=== PATIENT | male | born 1960 | race Caucasian/White ===

== ENCOUNTER → 2020-05-03 13:11 | Outpatient (CLI) | payer OTHER, SELFPAY ==
--- NOTE | ~2020-05-03 | XR_ITS ---
EXAMINATION: XR abdomen obstructive series DATE: 05/03/2020 13:38 INDICATION: Unspecified abdominal pain TECHNIQUE: Upright and supine views of the abdomen were obtained. COMPARISON: CT, 10/17/2017 FINDINGS: There is a large volume of colonic stool. There is no free intraperitoneal gas or evidence of bowel obstruction. The bowel gas pattern is normal. Cholecystectomy clips are noted in the right u pper quadrant. The lung bases are clear. There is mild osteoarthritis of the hips. IMPRESSION: 1. Constipation Reviewed, dictated and finalized at location A. IMPRESSION: 1. Constipation
== END ==
PROVIDERS: PCP Family Medicine; Visit Provider Physician Assistant
DX: R10.9 Unspecified abdominal pain (principal); K59.00 Constipation, unspecified
CPT/HCPCS: 74019

== ENCOUNTER 2020-08-29 12:35 | Outpatient (NON) | payer OTHER, SELFPAY ==
[2020-08-30 01:01] LABS: SARS-CoV-2 RNA PCR Negative
== END 2020-08-29 12:36 ==
LOC: ANHCOVIDDT 12:37
PROVIDERS: PCP Family Medicine; Visit Provider Physician Assistant
DX: R50.9 Fever, unspecified (principal); Z20.828 Contact with and (suspected) exposure to other viral communicable diseases
CPT/HCPCS: 87635; C9803; U0003

== ENCOUNTER 2021-02-08 18:30 | Emergency (ER) | payer BC, SELFPAY ==
[2021-02-08 18:38] VITALS: BP 126/71; PULSE 87; RESP 16; TEMP 36.3; O2SAT 98
--- NOTE | 2021-02-08 18:43 | ED.EAR ---
HPI - Ear Problem General Chief complaint: Ear Stated complaint: ear pain Time Seen by Provider: 02/08/21 18:43 Source: patient and RN notes reviewed Mode of arrival: ambulatory Limitations: no limitations History of Present Illness HPI Narrative: 60-year-old male presents with concern for continued right ear pain. Reports ongoing ear pain despite 2 rounds of antibiotics. Reports 3 weeks ago he was seen by his primary care provider who put him on cephalexin and prednisone. Reports symptoms improved but did not resolve. Reports his provider then put him on Bactrim. He denies any improvement with Bactrim. Reports he has an appointment with a ENT next , however the pain was intolerable for 1 week. He denies drainage from the ear, ear canal swelling, tinnitus, hearing changes. MD Complaint: ear pain Related Data Home Medications Medication Instructions Recorded Confirmed Bifidobacterium infantis 4 mg 4 mg PO DAILY 06/17/20 01/25/21 capsule olmesartan 40 mg PO DAILY 02/08/21 02/08/21 omeprazole 40 mg PO DAILY 02/08/21 02/08/21 Allergies Allergy/AdvReac Type Severity Reaction Status Date / Time ciprofloxacin Allergy Unknown unknown Verified 02/08/21 19:11 codeine Allergy Unknown unknown Verified 02/08/21 19:12 erythromycin base Allergy Unknown unknown Verified 02/08/21 19:12 Penicillins Allergy Unknown unknown Verified 02/08/21 19:12 Quinolones Allergy Unknown A CHILD Verified 02/08/21 19:12 tetracycline Allergy Unknown unknown Verified 02/08/21 19:12 Review of Systems Review of Systems: Narrative: CONSTITUTIONAL: Denies malaise, chills, sweats, or fever. EYES: Denies visual changes, redness, or discharge. ENT: Denies rhinorrhea, congestion, sinus pain, and sore throat. Reports right ear pain. Denies hearing changes, tinnitus, drainage CARDIOVASCULAR: Denies chest pain, palpitations, or edema. RESPIRATORY: Denies cough or dyspnea. GASTROINTESTINAL: Denies abdominal pain, nausea, vomiting, diarrhea SKIN: Denies rash or itching. MUSCULOSKELETAL: Denies myalgia. NEUROLOGIC: Denies headache. All systems reviewed & are unremarkable except as noted in HPI and below PMFSH Past Medical History Medical History (Updated 02/08/21 @ 19:02 by Saritha Mensah NP) Diverticula of intestine (~2017) Hypertension IBS (irritable bowel syndrome) Normal colonoscopy (~2016) Follow up in 5 years Surgical History Surgical History Hx of cholecystectomy (~2001) S/P nasal surgery (~1978) Family History Family History Father Hypertension, Onset Age: 66 Cerebrovascular accident, Onset Age: 66 Patient's father is , Onset Age: 66 Mother Hypertension Social History Social History Second hand tobacco smoke exposure: No Alcohol intake: never Substance use: never Substance use type: does not use Comments At time of signature, agree with nursing past medical, surgical, social and family history. There is no relevant family history pertinent to the presenting complaint Exam Narrative: Exam Narrative: GENERAL: Well-appearing, well-nourished, and in no acute distress. HEAD: Normocephalic EYES: PERRLA, conjunctivae clear ENT: Nares clear. Mucous membranes moist. Left TM pearly graves with dull light reflex, left TM slightly bulging and cloudy without erythema; auditory canals unremarkable, no tragal tenderness. NECK: Supple. No lymphadenopathy CHEST: No respiratory distress, speaks in full sentences. HEART: Regular rate and rhythm. No murmur heard. SKIN: Warm, dry, no rash. NEURO: Alert and oriented x3. PSYCH: Normal mood and affect Course Course Emergency Course: Patient is aware of diagnosis, understands and agrees to treatment plan. Anticipatory guidance given. Patient agrees to follow-up as directed and is aware
== END 2021-02-08 19:05 | disposition home or self-care (01) ==
PROVIDERS: Emergency Provider Nurse Practitioner; PCP Family Medicine
DX: H65.04 Acute serous otitis media, recurrent, right ear (principal); I10 Essential (primary) hypertension
CPT/HCPCS: 99213; G0463

== ENCOUNTER → 2021-02-20 14:07 | Outpatient (CLI) | payer BC, SELFPAY ==
--- NOTE | ~2021-02-20 | XR_ITS ---
XR cervical spine 4-5V 02/20/2021 14:21 Indication: Cervicalgia Procedure: 4 views of the cervical spine Comparison: No prior studies for comparison. Findings: There is accentuated cervical lordosis. Vertebral body heights are maintained. No preverteb ral soft tissue swelling. Lung apices are normal. Odontoid process within normal limits. There are mi ld uncinate degenerative change at multiple levels. Impression: 1: Mild cervical spondylosis. Reviewed, dictated and finalized at location A. Impression: 1: Mild cervical spondylosis.
== END ==
PROVIDERS: Visit Provider Physician Assistant
DX: M47.812 Spondylosis without myelopathy or radiculopathy, cervical region (principal)
CPT/HCPCS: 72050

== ENCOUNTER 2021-04-25 13:52 | Outpatient (CLI) | payer BC, SELFPAY ==
--- NOTE | ~2021-04-25 | CT_ITS ---
EXAMINATION: CT cervical spine wo [facility] EXAM DATE: 04/25/2021 14:41 INDICATION: Cervicalgia. TECHNIQUE: Spiral CT of the cervical spine was performed without contrast. Axial images were reviewe d. Coronal and sagittal reformatted images cervical spine were also reviewed. The dose-length produc t (DLP) for this examination was 407.00 mGy-cm. The exposure was tailored according to patient size (auto mA exposure control), and iterative reconstruction (ASIR) was used as additional dose reduction technique. Correlation is made to x-ray from January. FINDINGS: The disc and vertebral body heights are maintained. There are small endplate osteophytes. There are no acute fractures identified. The odontoid process is intact. The lateral masses of C1 li ne up with C2. Prevertebral soft tissue and pre-dens space are within normal limits. Level by level evaluation: C2-C3: Disc does not extend beyond the endplate margin. Uncovertebral joint arthropathy: None. Facet joint arthropathy: Mild left. Neural foraminal stenosis: No stenosis. Central canal stenosis: No stenosis. C3-C4: Disc does not extend beyond the endplate margin. Uncovertebral joint arthropathy: None. Facet joint arthropathy: Moderate left. Neural foraminal stenosis: No stenosis. Central canal stenosis: No stenosis. C4-C5: There is a mild diffuse disc bulge. Uncovertebral joint arthropathy: None. Facet joint arthropathy: Moderate left. Neural foraminal stenosis: No stenosis. Central canal stenosis: No stenosis. C5-C6: There is a mild diffuse disc bulge. Uncovertebral joint arthropathy: None. Facet joint arthropathy: Moderate left. Neural foraminal stenosis: No stenosis. Central canal stenosis: No stenosis. C6-C7: Disc does not extend beyond the endplate margin. Uncovertebral joint arthropathy: None. Facet joint arthropathy: Mild to moderate left. Neural foraminal stenosis: No stenosis. Central canal stenosis: No stenosis. C7-T1: Disc does not extend beyond the endplate margin. Uncovertebral joint arthropathy: None. Facet joint arthropathy: None. Neural foraminal stenosis: No stenosis. Central canal stenosis: No stenosis. IMPRESSION: 1. Moderate left mid cervical facet arthropathy. 2. Otherwise relatively mild spondylosis. Reviewed, dictated and finalized at location G.
== END 2021-04-25 13:53 | disposition home or self-care (01) ==
PROVIDERS: PCP Family Medicine; Visit Provider Physician Assistant
DX: M47.812 Spondylosis without myelopathy or radiculopathy, cervical region (principal); H92.01 Otalgia, right ear
CPT/HCPCS: 72125

== ENCOUNTER 2021-07-01 11:34 | Emergency (ER) | payer BC, SELFPAY ==
--- NOTE | ~2021-07-01 | CT_ITS ---
EXAMINATION: CT abdomen pelvis w con INDICATION: Right flank pain TECHNIQUE: Computed tomographic images of the abdomen and pelvis were obtained after the administrati on of 100 cc of Omnipaque 350 intravenous contrast. The dose-length product (DLP) was 448.68 mGy-cm. Automated exposure control and iterative reconstruction technique were employed. COMPARISON: 10/17/2017 FINDINGS: Minimal dependent atelectasis is present in the lung bases. The heart size is normal. There is a small sliding hiatal hernia. The gallbladder is surgically absent. Punctate calcifications in o therwise normal appearing liver and spleen likely represent healed granulomatous disease. The pancrea s and adrenal glands are normal. The kidneys are unremarkable. No stones are identified in the kidney s, ureters, or bladder. There is no hydronephrosis or hydroureter. No pathologically enlarged abdomin al or pelvic lymph nodes are identified. There is no free intraperitoneal gas or evidence of bowel ob struction. Colonic diverticulosis is present without evidence of diverticulitis. There is mild lumbar spondylosis. A moderate volume of colonic stool is present. IMPRESSION: 1. No CT correlate for the patient's symptoms. Reviewed, dictated and finalized at location A.
[2021-07-01 11:58] VITALS: BP 146/89; PULSE 94; RESP 16; TEMP 36.6; O2SAT 98
[2021-07-01 12:19] LABS: Basophils Absolute Auto 0.1 K/mm3 (0.0-0.1); Basophils Percent Auto 1.3 % (0.2-1.2); Eosinophils Absolute Auto 0.5 K/mm3 (0-0.3); Eosinophils Percent Auto 11.5 % (0-4.4); Hematocrit 46.1 % (42.0-52.0); Hemoglobin 15.8 g/dL (14.0-18.0); Immature Granulocyte Absolute 0.01 K/mm3 (0.00-0.031); Immature Granulocyte Percent A 0.2 % (0-0.5); Lymphocytes Percent Auto 26.5 % (18.3-44.2); Mean Corpuscular HGB Conc 34.3 g/dl (32-36); Mean Corpuscular Hemoglobin 31.5 pg (26-34); Mean Platelet Volume 9.7 fl (7.4-10.4); Monocytes Absolute Auto 0.5 K/mm3 (0.1-0.6); Monocytes Percent Auto 11.3 % (2.6-8.5); Neutrophils Absolute Auto 2.2 K/mm3 (1.3-6.7); Neutrophils Percent Auto 49.2 % (45.5-73.1); Platelet Count Result 181 k/mm3 (150-375); Red Blood Count 5.01 M/mm3 (4.6-6.20); Red Cell Distribution Width 12.3 % (11.5-14.5); White Blood Count 4.5 K/mm3 (4.5-10.0)
[2021-07-01 12:33] LABS: Anion Gap 9 mmol/L (8-16); Blood Urea Nitrogen 18 mg/dL (9-20); Calcium 9.5 mg/dL (8.4-10.2); Carbon Dioxide 32 mmol/L (22-30); Chloride 101 mmol/L (98-107); Estimated CRCL calculation 81 ml/min; Estimated Glomerular Filt Rate > 60; Glucose 109 mg/dL (65-110); Potassium 3.8 mmol/L (3.4-5.0); Sodium 142 mmol/L (137-145)
[2021-07-01 13:17] LABS: Add Urine Microscopic? YES; Appearance Urine Clear (Clear); Bilirubin Urine Negative (Negative); Blood Urine 1+ (Negative); Color Urine Colorless (Yellow); Glucose Urine UA Negative (Negative); Ketones Urine Negative (Negative); Leukocyte Esterase Ur Negative LEU/UL (Negative); Nitrate Urine Negative (Negative); Protein Urine Negative (Negative); Urobilinogen Urine Negative mg/dL (<2.0); WBC Urine 0-3 /hpf
[2021-07-01 13:27] LABS: Specific Grav Ur 1.003 (1.001-1.035)
--- NOTE | 2021-07-01 15:24 | PC.NURSE ---
pt up to intake desk. pt informed he would be taken back to a room shortly. pt to this rn with an elevated voice stating this is frustrating. i've been waiting and i see people go back, be seen, and get to leave all while I've been sitting here. pt informed that we have a process and there is a multitude of reasons why patients get sent back regardless of time waiting. pt turning red in face and continuing to tell this RN how frustrated he is with an aggressive tone. RN informed pt she is sorry he is frustrated and that verbal aggression does not get pt back to room and sooner. pt began to raise voice even more. This RN told pt to sit down and have a seat because I felt uncomfortable. Pt then asked if his PCP could have access to his results, pt told that he would have to get his results from medical records during normal business hours. pt again reminded he would be going to a room very shortly. pt sat back down in [facility].
--- NOTE | 2021-07-01 15:34 | ED.GENADULT ---
HPI - General Adult General Chief complaint: Abdominal Pain Stated complaint: right flank pain Time Seen by Provider: 07/01/21 15:25 Source: RN notes reviewed History of Present Illness HPI narrative: Patient presents emergency department from home for flank pain. Patient states has been having bilateral flank pain for the past 5 days states that this morning the pain became more severe on the right side. Patient states pain comes in waves and is described as sharp and stabbing states he did not taking medication for the pain. Patient did note mild blood in his urine today he denies any fevers or chills or diarrhea does note mild nausea Related Data Home Medications Medication Instructions Recorded Confirmed Bifidobacterium infantis 4 mg 4 mg PO DAILY 06/17/20 02/16/21 capsule olmesartan 40 mg PO DAILY 02/08/21 02/16/21 omeprazole 40 mg PO DAILY 02/08/21 02/16/21 Allergies Allergy/AdvReac Type Severity Reaction Status Date / Time ciprofloxacin Allergy Unknown unknown Verified 02/16/21 11:07 codeine Allergy Unknown unknown Verified 02/16/21 11:07 erythromycin base Allergy Unknown unknown Verified 02/16/21 11:07 Penicillins Allergy Unknown unknown Verified 02/16/21 11:07 Quinolones Allergy Unknown A CHILD Verified 02/16/21 11:07 tetracycline Allergy Unknown unknown Verified 02/16/21 11:07 Review of Systems Review of Systems: Gen.: Denies fevers or chills ENT: Denies congestion Respiratory: Denies shortness of breath or cough CV: Denies chest pain or palpitations GI: See HPI reports hematuria Musculoskeletal: Denies back pain or muscle pain Neuro: Denies numbness, tingling, weakness or focal weakness Skin: Denies rash Except as documented, all other systems reviewed and negative [facility] Past Medical History Medical History (Updated 07/01/21 @ 17:28 by Shai Cardoso DO) Diverticula of intestine (~2016) Hypertension IBS (irritable bowel syndrome) Normal colonoscopy (~2016) Follow up in 5 years Surgical History Surgical History Hx of cholecystectomy (~2001) S/P nasal surgery (~1978) Family History Family History Father Hypertension, Onset Age: 66 Cerebrovascular accident, Onset Age: 66 Patient's father is , Onset Age: 66 Mother Hypertension Social History Social History Second hand tobacco smoke exposure: No Alcohol intake: never Substance use: never Substance use type: does not use Exam Narrative: APPEARANCE: No acute distress, nontoxic, resting in bed EYES: EOMI HEENT: Normocephalic, atraumatic, OMM RESPIRATORY: No respiratory distress Clear to auscultation bilaterally with no rhonchi wheezing or rales. CARDIOVASCULAR: Regular rate and rhythm without murmurs rubs or gallops. ABDOMINAL: Soft, nontender, nondistended, no rebound or guarding, right flank tenderness MUSCULOSKELETAl: Moves all extremities. No clubbing, cyanosis or edema., Back: No midline lumbar tenderness palpation to palpation bilateral paravertebral muscles L1-3 pain increased with rotation of the torso NEURO: Awake and alert. Following commands, speech normal, no focal deficits SKIN:: Warm, dry. No rashes lesions or abrasions PSYCHIATRIC: Normal affect/mood, Course Course Emergency Course: Discussed with patient results of workup and diagnosis. Discussed need for follow-up with primary care, proper use of medication, and reasons to return to the emergency department. Patient understands and agrees to current treatment plan Vital Signs Vital signs: Vital Signs Temperature 97.8 F 07/01/21 11:58 Pulse Rate 94 07/01/21 11:58 Respiratory Rate 16 07/01/21 11:58 Blood Pressure 146/89 H 07/01/21 11:58 Pulse Oximetry 98 07/01/21 11:58 Temperature 97.8 F 07/01/21 11:58 Pulse Rate 80 07/01/21 15:58
[2021-07-01 15:58] VITALS: BP 138/89; PULSE 80; RESP 12; O2SAT 98
[2021-07-01] MEDS: SODIUM CHLORIDE 0.9% IV 1,000 ML 999 ML IV CONT (15:58)
[2021-07-01] MEDS: ONDANSETRON INJ 4 MG/2 ML VIAL IV PUSH (15:58)
[2021-07-01] MEDS: KETOROLAC 30 MG/ML VIAL (*BKC) IV PUSH (15:58)
[2021-07-01 16:07] LABS: Alanine Aminotransferase 43 U/L (4-50); Albumin Level 5.4 g/dL (3.5-5.1); Alkaline Phosphatase 77 U/L (38-126); Aspartate Amino Transferase 32 U/L (17-59); Bilirubin,Total 1.1 mg/dL (0.2-1.3)
[2021-07-01 17:10] LABS: Lipase 102 U/L (23-300)
[2021-07-01 17:46] VITALS: BP 130/78; PULSE 72; RESP 20; O2SAT 100
--- NOTE | 2021-07-12 07:58 | PC.NURSE ---
LATE ENTRY This note is being entered to document information to the patient's record. The following information was omitted on [07/01/21], by [Scottie HERRERA Stop time [id number].].
== END 2021-07-01 17:48 | disposition home or self-care (01) ==
PROVIDERS: Emergency Provider Emergency Medicine; PCP Family Medicine
DX: M54.50 Low back pain, unspecified (principal); I10 Essential (primary) hypertension; K58.9 Irritable bowel syndrome, unspecified
CPT/HCPCS: 36415; 74177; 80048; 80076; 81001; 83690; 85025; 96361; 96374; 96375; 99284; J1885; J2405; J7030; Q9967

== ENCOUNTER 2021-11-14 14:12 | Emergency (ER) | payer BC, SELFPAY ==
[2021-11-14 14:20] VITALS: BP 123/82; PULSE 88; RESP 16; TEMP 36.3; O2SAT 98
[2021-11-14 15:04] VITALS: BP 123/82; PULSE 88; RESP 16; TEMP 36.3; O2SAT 98
--- NOTE | 2021-11-14 15:07 | ED.GENADULT ---
HPI - General Adult General Chief complaint: Abdominal Pain Stated complaint: Abdominal Pain Source: patient Mode of arrival: ambulatory Limitations: no limitations History of Present Illness HPI narrative: Patient presents for evaluation of left-sided abdominal pain. He indicates six days ago he experienced upper abdominal pain. He had a solid bowel movement and his pain resolved. He had recurrence of his pain and had another bowel movement which alleviated his pain ago. Once again, he had recurrence of the pain. He then felt nauseated, had an episode of vomiting and explosive diarrhea. He states over the course of the next two days, he had a fever ranging between 100-101 F. He slept a great portion of those days. He bowel pattern normalized, however he has continued to experience intermittent left-sided abdominal pain since that time. He also reports increased gas production. Passing gas rectally seems to alleviate his pain. No current fever, chills, nausea, vomiting, current/recent rectal bleeding/mucus in the stool. Of note, he had diverticulitis about five years ago. He required admission and IV flagyl. He has not had problems with recurrent diverticulitis since that time. He does not consume ETOH. He is attempting to go visit his grandchild. He wanted to ensure it was safe to do so, and wished to have a medical exam. He attempted to be seen by his PCP but has not received a call back from them. Therefore, he came her for further evaluation. Of note, he had a COVID PCR test and flu test performed last Saturday. Those results were negative. Last bowel movement was this morning, solid in consistency. No additional complaints or concerns. Related Data Home Medications Medication Instructions Recorded Confirmed Bifidobacterium infantis 4 mg 4 mg PO DAILY 06/17/20 11/14/21 capsule olmesartan 40 mg PO DAILY 02/08/21 11/14/21 omeprazole 40 mg PO DAILY 02/08/21 11/14/21 Allergies Allergy/AdvReac Type Severity Reaction Status Date / Time ciprofloxacin Allergy Unknown unknown Verified 11/14/21 14:16 codeine Allergy Unknown unknown Verified 11/14/21 14:16 erythromycin base Allergy Unknown unknown Verified 11/14/21 14:16 Penicillins Allergy Unknown unknown Verified 11/14/21 14:16 Quinolones Allergy Unknown A CHILD Verified 11/14/21 14:16 tetracycline Allergy Unknown unknown Verified 11/14/21 14:16 Review of Systems Review of Systems: CONSTITUTIONAL: Reports recent fever, none currently. Denies chills or sweats. EYES: Denies visual changes, redness, or discharge. ENT: Denies rhinorrhea, congestion, sore throat, or otalgia. CARDIOVASCULAR: Denies chest pain, palpitations, or edema. RESPIRATORY: Denies cough or dyspnea. GASTROINTESTINAL: Reports recent abdominal pain, none currently. Reports episode of nausea and vomiting last week. Reports one episode of diarrhea last week. GENITOURINARY: Denies dysuria or hematuria. SKIN: Denies rash or itching. MUSCULOSKELETAL: Denies back pain, joint pain, or myalgia. NEUROLOGIC: Denies headache, numbness, dizziness, or weakness. PSYCHIATRIC: Denies anxiety or depression. [facility] Past Medical History Medical History Diverticula of intestine (~2016) Hypertension IBS (irritable bowel syndrome) Normal colonoscopy (~2016) Follow up in 5 years Surgical History Surgical History Hx of cholecystectomy (~2001) S/P nasal surgery (~1978) Family History Family History Father Hypertension, Onset Age: 66 Cerebrovascular accident, Onset Age: 66 Patient's father is , Onset Age: 66 Mother Hypertension Social History Social History Second hand tobacco smoke exposure: No Alcohol intake: never Substance use: never Sub
== END 2021-11-14 15:13 | disposition home or self-care (01) ==
PROVIDERS: Emergency Provider Nurse Practitioner; PCP Family Medicine
DX: R10.32 Left lower quadrant pain (principal); Z87.19 Personal history of other diseases of the digestive system; I10 Essential (primary) hypertension
CPT/HCPCS: 99213; G0463

== ENCOUNTER 2023-01-11 15:12 | Emergency (ER) | payer BC, SELFPAY ==
[2023-01-11 15:20] VITALS: BP 122/82; PULSE 100; RESP 20; TEMP 37; O2SAT 99
--- NOTE | 2023-01-11 15:46 | ED.EAR ---
HPI - Ear Problem General Chief complaint: Ear Stated complaint: ear pain Time Seen by Provider: 01/11/23 15:25 Source: patient Mode of arrival: ambulatory Limitations: no limitations History of Present Illness HPI Narrative: Patient presents today complaining of right ear and right face pain since yesterday afternoon. Hearing is normal. Denies any congestion, rhinorrhea, cough, fever. Currently rates pain 5/10 and has been taking Tylenol without relief. Related Data Home Medications Medication Instructions Recorded Confirmed Bifidobacterium infantis 4 mg 4 mg PO DAILY 01/11/23 01/11/23 capsule (Align) Allergies Allergy/AdvReac Type Severity Reaction Status Date / Time ciprofloxacin Allergy Unknown unknown Verified 01/11/23 15:17 codeine Allergy Unknown unknown Verified 01/11/23 15:17 erythromycin base Allergy Unknown unknown Verified 01/11/23 15:17 Penicillins Allergy Unknown unknown Verified 01/11/23 15:17 Quinolones Allergy Unknown A CHILD Verified 01/11/23 15:17 tetracycline Allergy Unknown unknown Verified 01/11/23 15:17 Review of Systems Review of Systems: CONSTITUTIONAL: Denies body aches, fever, chills, or sweats. EYES: Denies visual changes, redness, or discharge. ENT: Denies rhinorrhea, congestion, sore throat. + right facial and ear pain CARDIOVASCULAR: Denies chest pain, palpitations, or edema. RESPIRATORY: Denies cough or dyspnea. GASTROINTESTINAL: Denies abdominal pain, nausea, vomiting, or diarrhea. GENITOURINARY: Denies dysuria or hematuria. SKIN: Denies rash, itching, or wounds. MUSCULOSKELETAL: Denies back pain, joint pain, or myalgia. NEUROLOGIC: Denies headache, numbness, tingling, or weakness. PSYCH: Denies depression or anxiety. [facility] Past Medical History Medical History Diverticula of intestine (~2016) Hypertension IBS (irritable bowel syndrome) Left hip pain Normal colonoscopy (~2016) Follow up in 5 years Pain in right foot Surgical History Surgical History Hx of cholecystectomy (~2001) S/P nasal surgery (~1978) Family History Family History Father Hypertension, Onset Age: 66 Cerebrovascular accident, Onset Age: 66 Patient's father is , Onset Age: 66 Mother Hypertension Social History Social History Smoking status: Never smoker Second hand tobacco smoke exposure: No Alcohol intake: never Substance use: never Substance use type: does not use Gender identity (if verbalized by the patient): Male Spiritual care concerns: No Comments At time of signature, I have reviewed and agree with nursing past medical, surgical, social and family history unless otherwise noted. Please see nursing chart for further information. There is no relevant family history pertinent to the presenting complaint Exam Narrative: GENERAL: Well-appearing, well-nourished, and in no acute distress. HEAD: Normocephalic, atraumatic. EYES: EOMI. No redness or drainage. Conjunctivae normal. ENT: Mucous membranes pink and moist. Nares clear. No rhinorrhea. TMs normal bilaterally. Throat normal. Uvula midline. Patient has tenderness to the right restorationism, cheek, and lower jaw. No edema, erythema present. Full range of motion of the jaw. No facial droop or neurological deficits noted. NECK: Normal AROM. Supple. No lymphadenopathy. CHEST: No respiratory distress. EXTREMITIES: Normal range of motion. No edema. SKIN: Warm, dry, no rash. Capillary refill normal. Normal skin turgor. NEURO: No focal deficits. Alert and oriented x3. Gait steady. PSYCH: Normal affect. No signs of depression or anxiety. Course Course Level of Care: Express Care Visit Vital Signs Vital signs: Vital Signs Temperature 98.6 F 12/29
== END 2023-01-11 16:00 | disposition home or self-care (01) ==
PROVIDERS: Emergency Provider Nurse Practitioner
DX: G50.0 Trigeminal neuralgia (principal); I10 Essential (primary) hypertension
CPT/HCPCS: 99213; G0463

== ENCOUNTER 2023-08-25 15:28 | Emergency (ER) | payer BC, SELFPAY ==
[2023-08-25 15:35] VITALS: BP 144/77; PULSE 91; RESP 18; TEMP 36.6; O2SAT 99
--- NOTE | 2023-08-25 15:43 | ED.ABDPAIN ---
HPI - Abdominal Pain General Chief Complaint: Nausea/Vomiting/Diarrhea Stated Complaint: Diarrhea Time Seen by Provider: 08/25/23 15:43 Source: patient and RN notes reviewed Mode of arrival: ambulatory Limitations: no limitations History of Present Illness HPI narrative: 62-year-old male with hx diverticulitis and GERD presented for complaint of diarrhea. Onset 4 days. States it started after eating cheesecake at [employer]. Reports about 5 watery/loose stools per day. No other sick family members. Patient took Gas-X with some relief. Continued taking Metamucil for a few days after the diarrhea onset but has stopped. Endorses appetite is normal. Denies abdominal pain, hematochezia, melena, n/v/f/c. Patient takes align regularly and eats bland diet. Related Data Home Medications Medication Instructions Recorded Confirmed Bifidobacterium infantis 4 mg 4 mg PO DAILY 01/11/23 01/11/23 capsule (Align) Allergies Allergy/AdvReac Type Severity Reaction Status Date / Time ciprofloxacin Allergy Unknown unknown Verified 01/11/23 15:17 codeine Allergy Unknown unknown Verified 01/11/23 15:17 erythromycin base Allergy Unknown unknown Verified 01/11/23 15:17 Penicillins Allergy Unknown unknown Verified 01/11/23 15:17 Quinolones Allergy Unknown A CHILD Verified 01/11/23 15:17 tetracycline Allergy Unknown unknown Verified 01/11/23 15:17 Review of Systems Review of Systems: CONSTITUTIONAL: Denies body aches, fever, chills ENT: Denies rhinorrhea, congestion CARDIOVASCULAR: Denies chest pain, palpitations, or edema. RESPIRATORY: Denies cough or dyspnea. GASTROINTESTINAL: Endorses diarrhea, denies abdominal pain, nausea, vomiting, hematochezia, melena GENITOURINARY: Denies dysuria, hematuria, or CVA tenderness. SKIN: Denies rash, itching, or wounds. MUSCULOSKELETAL: Denies back pain, joint pain, or myalgia. NEUROLOGIC: Denies headache, numbness, tingling, or weakness. All systems reviewed & are unremarkable except as noted in HPI and below PMFSH Past Medical History Medical History Diverticula of intestine (~2016) Hypertension IBS (irritable bowel syndrome) Left hip pain Normal colonoscopy (~2017) Follow up in 5 years Pain in right foot Surgical History Surgical History Hx of cholecystectomy (~2001) S/P nasal surgery (~1978) Family History Family History Father Hypertension, Onset Age: 66 Cerebrovascular accident, Onset Age: 66 Patient's father is , Onset Age: 66 Mother Hypertension Social History Social History Smoking status: Never smoker Second hand tobacco smoke exposure: No Alcohol intake: never Substance use: never Substance use type: does not use Gender identity (if verbalized by the patient): Male Spiritual care concerns: No Comments At time of signature, I have reviewed and agree with nursing past medical, surgical, social and family history unless otherwise noted. Please see nursing chart for further information. There is no relevant family history pertinent to the presenting complaint Exam Narrative: GENERAL: Well-appearing, and in no acute distress. EYES: EOMI. Conjunctivae normal. ENT: Mucous membranes pink and moist. CHEST: No respiratory distress. Clear to auscultation. HEART: Regular rate and rhythm. No murmur appreciated. Normal peripheral pulses. ABDOMEN: abd soft, nondistended, normal active bowel sounds. mild tender abdomen throughout, No guarding, rebound tenderness, asymmetry, or rigidity. EXTREMITIES: Normal range of motion. No edema. SKIN: Warm, dry, no rash. Capillary refill normal. Normal skin turgor. NEURO: No focal deficits. Alert and oriented x3. PSYCH: Normal affect. Course Course Emergency Course: Sharri
== END 2023-08-25 16:06 | disposition home or self-care (01) ==
PROVIDERS: Emergency Provider Nurse Practitioner Family; PCP Family Medicine
DX: R19.7 Diarrhea, unspecified (principal); I10 Essential (primary) hypertension; K21.9 Gastro-esophageal reflux disease without esophagitis
CPT/HCPCS: 99211; G0463

== ENCOUNTER 2023-09-14 15:57 | Emergency (ER) | payer BC, SELFPAY ==
--- NOTE | 2023-09-14 16:01 | ED.BACK ---
HPI - Back Pain/Injury General Chief Complaint: Back Pain/Injury Stated Complaint: Lower Back Pain Time Seen by Provider: 09/14/23 16:02 Source: patient Mode of arrival: ambulatory Limitations: no limitations History of Present Illness HPI Narrative: Nino is a 62-year-old male patient presenting to the clinic today with complaints of low back pain x1 day. He reports he reached up to put something up and strained his low back. States he has a history of injuring the SI joint. Having pain over the bilateral SI joints. Denies any saddle anesthesia or loss of bowel or bladder. Denies any radiation of pain down his legs. Related Data Home Medications Medication Instructions Recorded Confirmed Bifidobacterium infantis 4 mg 4 mg PO DAILY 01/11/23 01/11/23 capsule (Align) Allergies Allergy/AdvReac Type Severity Reaction Status Date / Time ciprofloxacin Allergy Unknown unknown Verified 01/11/23 15:17 codeine Allergy Unknown unknown Verified 01/11/23 15:17 erythromycin base Allergy Unknown unknown Verified 01/11/23 15:17 Penicillins Allergy Unknown unknown Verified 01/11/23 15:17 Quinolones Allergy Unknown A CHILD Verified 01/11/23 15:17 tetracycline Allergy Unknown unknown Verified 01/11/23 15:17 Review of Systems Review of Systems: Pertinent positives per HPI. Patient denies any fever, chills, rash, headache, visual changes, dizziness, cough, runny nose, sore throat, shortness of breath, chest pain, palpitations, nausea, vomiting, diarrhea, constipation, abdominal pain, or any urinary issues. PMFSH Past Medical History Medical History Diverticula of intestine (~2016) Hypertension IBS (irritable bowel syndrome) Left hip pain Normal colonoscopy (~2016) Follow up in 5 years Pain in right foot Surgical History Surgical History Hx of cholecystectomy (~2001) S/P nasal surgery (~1978) Family History Family History Father Hypertension, Onset Age: 66 Cerebrovascular accident, Onset Age: 66 Patient's father is , Onset Age: 66 Mother Hypertension Social History Social History (Reviewed 09/14/23 @ 16:02 by JEFFERY Verdin Smoking status: Never smoker Second hand tobacco smoke exposure: No Alcohol intake: never Substance use: never Substance use type: does not use Gender identity (if verbalized by the patient): Male Spiritual care concerns: No Comments At the time of my signature, I reviewed and agree with the nursing past medical, surgical, social, and family history. There is no relevant family history pertinent to the patient complaint. Exam Narrative: General: Well-developed, well nourished, in no apparent distress Head: Normocephalic, atraumatic. Cardio: Regular rate and rhythm, s1 and s2 normal, no murmur appreciated. Resp: Clear to auscultation bilaterally, no rhonchi, rales, wheezing or rubs. Musculoskeletal: No deformity, tender to palpation over the bilateral si joints, grossly normal range of motion, muscle strength strong and equal, peripheral pulse strong, no edema, no cyanosis, normal gait and station Course Course Emergency Course: Portions of this record may have been created with voice recognition software. Level of Care: Express Care Visit Vital Signs Vital signs: Vital signs reviewed MDM - Back Pain/Injury MDM Narrative Medical decision making narrative: At the time of visit patient is resting comfortably on the exam table. Patient appears to be nontoxic. I suspect patient has SI joint dysfunction. Prescription for Medrol Dosepak was sent to pharmacy. Supportive measures were discussed with the patient and they voiced understanding discharge instructions and agrees to treatment plan. Return precautions reviewed Differential Diagnosis Dif
[2023-09-14 16:04] VITALS: BP 148/77; PULSE 96; RESP 16; TEMP 36.4; O2SAT 98
[2023-09-14 16:05] VITALS: BP 148/77; PULSE 96; RESP 16; TEMP 36.4; O2SAT 98
== END 2023-09-14 16:17 | disposition home or self-care (01) ==
PROVIDERS: Emergency Provider Nurse Practitioner Family; PCP Family Medicine
DX: M46.1 Sacroiliitis, not elsewhere classified (principal); I10 Essential (primary) hypertension
CPT/HCPCS: 99213; G0463

== ENCOUNTER 2024-03-05 11:12 | Emergency (ER) | payer BC, SELFPAY ==
[2024-03-05 11:25] VITALS: BP 139/76; PULSE 78; RESP 18; TEMP 36.8; O2SAT 98
--- NOTE | 2024-03-05 12:09 | ED.URI ---
HPI - URI/Sore Throat General Chief Complaint: Upper Respiratory Infection Stated Complaint: sinus sore throat Time Seen by Provider: 03/05/24 11:42 Source: patient and RN notes reviewed Mode of arrival: ambulatory Limitations: no limitations History of Present Illness HPI Narrative: Patient presents today with a 3 day history of sore throat that is worse with swallowing, headache, nasal congestion. Denies fever, cough, shortness of breath. Currently rates his pain 4/10 and has tried Tylenol with little relief. Denies known sick contacts. Related Data Home Medications Medication Instructions Recorded Confirmed Bifidobacterium infantis 4 mg 4 mg PO DAILY 01/11/23 03/05/24 capsule (Align) Allergies Allergy/AdvReac Type Severity Reaction Status Date / Time ciprofloxacin Allergy Unknown unknown Verified 03/05/24 11:37 codeine Allergy Unknown unknown Verified 03/05/24 11:37 erythromycin base Allergy Unknown unknown Verified 03/05/24 11:37 Penicillins Allergy Unknown unknown Verified 03/05/24 11:37 Quinolones Allergy Unknown A CHILD Verified 03/05/24 11:37 tetracycline Allergy Unknown unknown Verified 03/05/24 11:37 Review of Systems Review of Systems: CONSTITUTIONAL: Denies body aches, fever, chills, or sweats. EYES: Denies visual changes, redness, or discharge. ENT: Denies rhinorrhea, or otalgia.+ sore throat, congestion CARDIOVASCULAR: Denies chest pain, palpitations, or edema. RESPIRATORY: Denies cough or dyspnea. GASTROINTESTINAL: Denies abdominal pain, nausea, vomiting, or diarrhea. GENITOURINARY: Denies dysuria or hematuria. SKIN: Denies rash, itching, or wounds. MUSCULOSKELETAL: Denies back pain, joint pain, or myalgia. NEUROLOGIC: Denies numbness, tingling, or weakness.+ headache PSYCH: Denies depression or anxiety. [facility] Past Medical History Medical History Diverticula of intestine (~2016) Hypertension IBS (irritable bowel syndrome) Left hip pain Normal colonoscopy (~2016) Follow up in 5 years Pain in right foot Surgical History Surgical History Hx of cholecystectomy (~2001) S/P nasal surgery (~1978) Family History Family History Father Hypertension, Onset Age: 66 Cerebrovascular accident, Onset Age: 66 Patient's father is , Onset Age: 66 Mother Hypertension Social History Social History Smoking status: Never smoker Second hand tobacco smoke exposure: No Alcohol intake: never Substance use: never Substance use type: does not use Gender identity (if verbalized by the patient): Male Spiritual care concerns: No Comments Reviewed Exam Narrative: GENERAL: Well-appearing, well-nourished, and in no acute distress. HEAD: Normocephalic, atraumatic. EYES: EOMI. No redness or drainage. Conjunctivae normal. ENT: Mucous membranes pink and moist. Nares clear. No rhinorrhea. TMs normal bilaterally. Throat normal with moderate clear postnasal drainage. Uvula midline. NECK: Normal AROM. Supple. No lymphadenopathy. CHEST: No respiratory distress. Clear to auscultation. HEART: Regular rate and rhythm. No murmur appreciated. EXTREMITIES: Normal range of motion. No edema. SKIN: Warm, dry, no rash. Capillary refill normal. Normal skin turgor. NEURO: No focal deficits. Alert and oriented x3. Gait steady. PSYCH: Normal affect. No signs of depression or anxiety. Course Course Level of Care: Express Care Visit Vital Signs Vital signs: Vital Signs Temperature 98.3 F 03/05/24 11:25 Pulse Rate 78 03/05/24 11:25 Respiratory Rate 18 03/05/24 11:25 Blood Pressure 139/76 03/05/24 11:25 Pulse Oximetry 98 03/05/24 11:25 Oxygen Delivery Room Air 03/05/24 11:25 Temperature 98.3 F
== END 2024-03-05 11:50 | disposition home or self-care (01) ==
PROVIDERS: Emergency Provider Nurse Practitioner; PCP Family Medicine
DX: J06.9 Acute upper respiratory infection, unspecified (principal); I10 Essential (primary) hypertension
CPT/HCPCS: 87081; 87880; 99213; G0463